=== PATIENT | female | born 1985 | race Asian ===

== ENCOUNTER 2017-06-23 15:24 | Emergency (ER) | payer MEDICAID, OTHER ==
[~2017-06-23] VITALS: Ht 157.5 cm; Wt 50.5 kg
[~2017-06-23 15:24] MED LIST: MO6B PO; PHEN240L4 PO
[2017-06-23] MEDS ORDERED: ASPI-1182 PO (16:29)
[2017-06-23 19:52] LABS: ANION GAP 12 mmol/L (8-16); CALCIUM, TOTAL 9.2 mg/dL (8.8-10.5); CARBON DIOXIDE 26 mmol/L (22-29); CHLORIDE 104 mmol/L (98-107); CREATININE 0.75 mg/dL (0.60-1.30); GLOMERULAR FILTR. RATE CALC > 60 mL/min (>60); GLUCOSE,RANDOM 95 mg/dL (70-110); SODIUM SERUM 142 mmol/L (136-145); UREA NITROGEN, BLOOD 9 mg/dL (7-18)
[2017-06-23 19:58] LABS: ALANINE AMINOTRANSFERASE 27 U/L (12-78); ALBUMIN 3.7 g/dL (3.4-5.0); ALKALINE PHOSPHATASE 67 U/L (46-116); ASPARTATE AMINOTRANSFERASE 16 U/L (15-37); BILIRUBIN,TOTAL 0.5 mg/dL (0.1-1.0); TOTAL PROTEIN, SERUM 7.5 g/dL (6.4-8.2)
[2017-06-23 20:16] LABS: BASOPHILS % (AUTO) 0.3 % (0.0-2.0); EOSINOPHILS % (AUTO) 0.2 % (1.0-6.0); HEMATOCRIT 40.3 % (36-46); HEMOGLOBIN 13.7 g/dL (12.0-16.0); LYMPHOCYTES # (AUTO) 1.8 K/uL (1.0-4.8); LYMPHOCYTES % (AUTO) 24.1 % (22.0-44.0); MEAN CORPUSCULAR HEMOGLOBIN 30.4 pg (26.0-34.0); MEAN CORPUSCULAR HGB CONC 33.9 G/dL (31.0-37.0); MEAN CORPUSCULAR VOLUME 90 fL (80-100); MONOCYTES # (AUTO) 0.6 K/uL (0.1-1.0); MONOCYTES % (AUTO) 7.9 % (2.0-9.0); NEUTROPHILS % (AUTO) 67.5 % (40.0-70.0); PLATELET COUNT (AUTO) 245 K/uL (150-450); RED CELL DISTRIBUTION WIDTH 12.8 % (11.5-14.5)
[2017-06-23 21:00] VITALS: BP 124/77
[2017-06-23] MEDS ORDERED: ACETAMINOPHEN 325 MG TABLET PO ONE (21:00)
== END 2017-06-23 21:00 | disposition home or self-care (01) ==
LOC: EMS 15:31
DX: R07.89 Other chest pain (principal); R06.02 Shortness of breath; Z79.82 Long term (current) use of aspirin
CPT/HCPCS: 71046; 85379; 93005; 99285

== ENCOUNTER 2017-12-08 21:55 | Emergency (ER) | payer OTHER ==
[~2017-12-08] VITALS: Ht 157.5 cm; Wt 50.0 kg
[~2017-12-08 21:55] MED LIST changes: +ASPI-1182 PO; -MO6B PO; -PHEN240L4 PO
[2017-12-08 22:01] VITALS: BP 103/75
== END 2017-12-08 23:11 | disposition left against medical advice (07) ==
LOC: EMS 21:57
DX: R10.13 Epigastric pain (principal); Z53.21 Procedure and treatment not carried out due to patient leaving prior to being seen by health care provider

== ENCOUNTER 2018-10-04 11:36 | Emergency (ER) | payer OTHER ==
[~2018-10-04] VITALS: Ht 157.5 cm; Wt 50.0 kg
[2018-10-04 12:08] VITALS: BP 110/76
[2018-10-04] MEDS ORDERED: LACTOBACILLUS ACIDOPHILUS/BULGARICUS TABLET PO ONE (12:30)
[2018-10-04] MEDS ORDERED: AMOX TR/POT CLAV 875 MG/125 MG TABLET PO ONE (12:30)
== END 2018-10-04 12:37 | disposition home or self-care (01) ==
LOC: EMS 11:36
DX: J03.90 Acute tonsillitis, unspecified (principal)